=== PATIENT | female | born 1995 ===

== ENCOUNTER 2022-06-04 08:15 | Outpatient (CLI) | payer OTHER | END 2022-06-04 10:00 | disposition home or self-care (01) | LOC: PRENATAL 08:15 | PROVIDERS: ATTEND Obstetrics & Gynecology Maternal & Fetal Medicine | DX: O36.80X0 Pregnancy with inconclusive fetal viability, not applicable or unspecified (principal); Z3A.13 13 weeks gestation of pregnancy; O98.419 Viral hepatitis complicating pregnancy, unspecified trimester; Z14.8 Genetic carrier of other disease ==

== ENCOUNTER 2022-07-17 10:55 | Outpatient (CLI) | payer OTHER | END 2022-07-17 12:57 | disposition home or self-care (01) | LOC: PRENATAL 10:55 | PROVIDERS: ATTEND Obstetrics & Gynecology Maternal & Fetal Medicine | DX: O35.0XX0 Maternal care for (suspected) central nervous system malformation in fetus, not applicable or unspecified (principal); O35.3XX0 Maternal care for (suspected) damage to fetus from viral disease in mother, not applicable or unspecified; Z3A.20 20 weeks gestation of pregnancy ==